=== PATIENT | male | born 1985 | race African-American/Black ===

== ENCOUNTER 2022-06-23 09:39 | Emergency (ER) | payer OTHER ==
[2022-06-23 09:49] VITALS: BP 165/108; PULSE 72; RESP 20; TEMP 97.6; BMI 34.9
[2022-06-23] MEDS ORDERED: KETOROLAC TROMETHAMINE 15 MG/ML VIAL IM ONE (10:50)
[2022-06-23] MEDS ORDERED: DEXAMETHASONE LIQUID 0.5 MG/5 ML PO ONE (10:52)
[2022-06-23] MEDS ORDERED: DEXAMETHASONE SOD PHOSPHATE 10 MG/1 ML VIAL ONE (10:58)
[2022-06-23] MEDS ORDERED: KETOROLAC TROMETHAMINE 15 MG/ML VIAL ONE (10:58)
[2022-06-23 11:50] LABS: THROAT:GRP A STREP NOT DETECTED (NOTDETECTED)
== END 2022-06-23 12:46 | disposition home or self-care (01) ==
LOC: JERFT 09:39 → JER 09:39
PROC: 3E023GC Introduction of Other Therapeutic Substance into Muscle, Percutaneous Approach (ICD-10-PCS; principal; 2022-06-23)
DX: K05.10 Chronic gingivitis, plaque induced (principal); J02.9 Acute pharyngitis, unspecified; R09.81 Nasal congestion; Z20.822 Contact with and (suspected) exposure to COVID-19
CPT/HCPCS: 0241U-QW; 87651; 99284-25